=== PATIENT | female | born 1940 | race Caucasian/White ===

== ENCOUNTER → 2016-08-29 | Outpatient (CLI) | payer MEDICARE, OTHER ==
--- NOTE | 2016-08-29 15:26 | RADRPT ---
PROCEDURE: Three-phase bone scan study CLINICAL INDICATION: 75 -year-old patient with wound in the coccyx complaining of pain. TECHNIQUE: Following the intravenous injection of 20.6 mCi of Tc-99m MDP, three-phase bone scan st udy of the pelvis was obtained. COMPARISON: No prior bone scans are available for comparison. FINDINGS: Blood flow phase of the study and blood pooling images demonstrate symmetrical distribution of activ ity in the pelvis, with no definite abnormal areas of increased activity noted in the coccyx. Delayed views of the pelvis demonstrate mildly increased activity in the lower lumbar spine, at appr oximately L4-L5 level, which is likely related to degenerative process. No definite abnormal areas of increased tracer concentration are seen in the coccyx on the delayed i mages. IMPRESSION: 1. No abnormal areas of increased tracer activity in the coccyx. 2. 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 RPTAT: HH .Ashlee Montano MD, MD Date Time Electronically viewed and signed by .Ashlee Montano MD, MD on 08/29/2016 15:26 .L/
== END | disposition home or self-care (01) ==
LOC: NUC 11:28
PROVIDERS: ATTEND Surgery
DX: S31.000D Unspecified open wound of lower back and pelvis without penetration into retroperitoneum, subsequent encounter (principal)
CPT/HCPCS: 78315; A9503